=== PATIENT | male | born 1965 | race Caucasian/White ===

== ENCOUNTER → 2020-02-20 | Day surgery (SDC) | payer OTHER ==
[~2020-02-20] MED LIST: AMLODIPINE-BEN1 EAC5 PO; CRESTOR10 MG PO; FENTANYL CITRATE/PF 100MCG/2 ML INJ ONE; KETAMINE HCL INJ 50 MG/ML 10 ML VIAL ONE; LIDOCAINE HCL 2% LOCAL INJ 5 ML SDV VIAL INJ ONE; METOPROLOL SUCC50 MG PO; MIDAZOLAM HCL 2 MG/2 ML VIAL ONE; PROPOFOL IV EMULSION 10 MG/ML 20 ML VIAL ONE; SIMETHICONE 40 MG/0.6 ML BTL ONE
[2020-02-20 14:18] VITALS: BP 113/88
--- NOTE | 2020-02-20 20:25 | Operative Report ---
DATE OF PROCEDURE: 02/20/2020 SURGEON: Meño Goodrich MD PROCEDURE.: Colonoscopy with polypectomy. INDICATIONS FOR COLONOSCOPY: Colorectal cancer screening. MEDICATIONS: The patient was done under MAC. Please see anesthesiologist's note. DESCRIPTION OF PROCEDURE: With the patient in left lateral decubitus position, a flexible fiberoptic Olympus colonoscope was inserted into the rectum with ease and advanced all the way to the cecum. One minute polyp in the cecum was removed per cold snare polypectomy. The scope was then withdrawn slowly. Mucosa overlying the ascending and the transverse appeared to be within normal limits. Two polyps, largest approximately 1 cm sessile were removed per hot snare polypectomy and sites were hemoclipped. The sigmoid colon appeared to be within normal limits. A minute polyp in the distal rectum was removed per hot biopsy forceps. The scope was then retroflexed into the distal rectum and moderate-sized internal hemorrhoids were noted none of which was actively bleeding. The scope was then straightened out. It was subsequently withdrawn. The patient tolerated procedure well. IMPRESSION: 1. Cecal polyp, cold snared. 2. Descending colon polyps x2, hot snared and site hemoclipped x2. 3. Rectal polyp, hot biopsied. 4. Internal hemorrhoids, none actively bleeding. PLAN: Follow up histology. Initiate high-fiber, low-fat diet. Initiate high-fiber supplement. The patient might benefit from a followup colonoscopy in 3 years. Meño Goodrich MD [facility] [place] /[id number] cc: Karel Hankins DO
== END | disposition home or self-care (01) ==
LOC: OR 07:50
PROVIDERS: ATTEND Internal Medicine Gastroenterology
DX: Z12.11 Encounter for screening for malignant neoplasm of colon (principal); D12.0 Benign neoplasm of cecum; D12.4 Benign neoplasm of descending colon; K62.1 Rectal polyp; K64.8 Other hemorrhoids; I10 Essential (primary) hypertension; E78.00 Pure hypercholesterolemia, unspecified; F17.210 Nicotine dependence, cigarettes, uncomplicated; Z01.810 Encounter for preprocedural cardiovascular examination; Z01.812 Encounter for preprocedural laboratory examination; Z11.59 Encounter for screening for other viral diseases; Z68.26 Body mass index [BMI] 26.0-26.9, adult; Z80.0 Family history of malignant neoplasm of digestive organs
CPT/HCPCS: 45384; 45385; 87635; 93005; J2001; J2250; J2704; J3010; 45378